=== PATIENT | female | born 1950 | race African-American/Black ===

== ENCOUNTER 2017-04-08 22:37 | Inpatient (IN) ==
[2017-04-08] MEDS ORDERED: ONDANSETRON 4 MG/2 ML VIAL IV STA (23:14)
[2017-04-08] MEDS ORDERED: HYDROmorphone 2 MG/1 ML VIAL IV STA (23:14)
[2017-04-08] MEDS ORDERED: ALUM/MAG/SIMETH/LIDO VISC 1:1 30 ML BOTTLE PO STA (23:14)
[2017-04-08] MEDS ORDERED: SODIUM CHLORIDE 0.9% 500 ML IV STA (23:14)
[2017-04-08] MEDS ORDERED: PANTOPRAZOLE 40 MG VIAL IV STA (23:14)
--- NOTE | 2017-04-08 23:15 | Emergency Department Note ---
Yolanda Deluca Gwan, am scribing for, and in the presence of, Brendan Arias MD 23 :14. Hugo Deluca Charles R, MD, personally performed the services described in this documentation, ascribed by Corey Guerrero in my presence, and it is both accurate and complete 315 . Arrival - Arrival Chief Complaint: Abdominal / Flank Pain Stated Complaint: Adomen pain ED Nursing Triage Note: patient stated that the abdomen pain started saturday night, but her head ache has been present since of last week. Patient stated that the abdomen pain has been chronic since 2013. Patient stated that she is also having some "SLIMEY" bowel movements. Mode of Arrival: Stretcher Limitations: No Limitations Source: Patient, Old Records Reviewed, RN Notes Reviewed Time Seen by Provider: 04/08/17 22:57 - History of Present Illness HPI Narrative: Patient is a 66 y/o female who presents to the ED with a c/o sore, swollen abd and N/V/D with an onset 2 days ago. Patient describes her abd pain as located "everywhere". She continued to note that this is the first time this has happened to her. During exam, patient did not display any signs of distress. No other problems/complaints reported in ED. Onset (ago): day(s) Consistency: constant Severity: moderate Allergies/Adverse Reactions: Allergies Allergy/AdvReac Type Severity Reaction Status Date / Time No Known Allergies Allergy Verified 06/27/16 08:18 Home Medications: Home Medications Medication Instructions Recorded Confirmed Type Lisinopril 20 mg PO DAILY 05/29/16 06/27/16 History Loratadine 10 mg PO BEDTIME PRN 05/29/16 06/27/16 History Metformin HCl 1,000 mg PO BID 05/29/16 06/27/16 History Sertraline [Zoloft] 100 mg PO DAILY 05/29/16 06/27/16 History Zolpidem [Ambien] 5 mg PO BEDTIME 05/29/16 06/27/16 History amLODIPine [Norvasc] 1 tablet PO BEDTIME 05/29/16 06/27/16 History traZODone [Desyrel] 50 mg PO BEDTIME 05/29/16 06/27/16 History Raloxifene [Evista] 60 mg PO BEDTIME 05/30/16 06/27/16 History Review of System - Review of System 12 point system: reviewed and no additional remarkable complaints except as stated - Review of System Constitutional: Absent: chills, fever Eyes: Absent: discharge, pain Gastrointestinal: Present: as per HPI, abdominal pain, nausea, vomiting, diarrhea Medical,Surgical,& Family Hx - Medical History Cardio: History of: Hypertension Neurology: No history of: Seizures HEENT: History of: Eye Problem (GLASSES), Dental Problems (TOP DENTURE) Respiratory: Comment Only: Obstructive Sleep Apnea (insomnia) Gastrointestinal: History of: GERD Comment Only: GI Problems (HX SWELLING STOMACH) Musculoskeletal: History of: Musculoskeletal Problems (ARTHRITIS) Reproductive: History of: Breast Cancer Other: History of: Cancer (BREAST NO IVS OR OR BP RIGHT ARM) - Surgical History Neurologic Surgeries: Patient denies: Neurologic Surgery Abdominal Surgeries: Surgical HX of: Colonoscopy Reproductive Surgeries: Surgical HX of;: Breast Surgery (R BREAST BX LUMPECTOMY RADIATION), Gynecologic Surgery, Tubal Ligation - Social History Smoking Status: Never smoker Exam Vital Signs: Vital Signs Temperature 98.4 F 04/08/17 22:39 Pulse Rate 83 04/08/17 22:39 Respiratory Rate 19 04/08/17 22:39 Blood Pressure 145/95 04/08/17 22:39 O2 Sat by Pulse Oximetry 97 04/08/17 22:39 - General General appearance: alert, in no apparent distress - Head Head exam: Present: atraumatic, normocephalic - Eye Eye exam: Present: normal appearance, PERRL, EOMI - ENT ENT exam: Present: normal oropharynx, mucous membranes moist, TM's normal bilaterally, normal external ear exam - Neck Neck exam: Present: full ROM, trachea midline. Absent: tenderness - Chest Chest inspection: Present: symmetric chest wall rise. Absent: tenderness - Respiratory Respiratory exam: Present: normal lung sounds bilaterally. Absent: respiratory distress - Cardiovascular Cardiovascular exam: Present: regular rate, normal rhythm, normal heart sounds. Absent: murmur - Abdominal Exam Abdominal exam: Present: distention, tenderness (abd tenderness), other ( decreased bowel sounds ) - Extremities Exam Extremities exam: Present: full ROM. Absent: tenderness - Back Exam Back exam: Present: full ROM. Absent: tenderness - Neurological Exam Neurological exam: Present: alert, oriented X3, CN II-XII intact. Absent: motor sensory deficit - Psychiatric Psychiatric exam: Present: normal affect, normal mood - Skin Skin exam: Present: warm, dry, intact, normal color Course - Consultations Consultation #1: Signed out to Dr. Moser ER doctor assuming care of this patient CT abdomen pelvis and labs are all pending Time: 01:40 Disposition Clinical Impression: Abdominal pain, Diabetes, HTN (hypertension) Case discussed with: patient, patient's family Condition: Stable
--- NOTE | 2017-04-08 23:18 | EKG Report ---
Stationary ECG Study [facility] ER Test Date: 04/08/2017 10:50:19 PM Pat Name: PAT WILLIAM Department: Room: Gender: F [employer]se[employer] Operator: SR : 1950 Requested by: Brendan Torres Order Number: [id number] Reading MD: EKATERINA ELMORE Intervals [place] Rate: 83 P: 60 WI: 153 QRS: -60 QRSD: 109 T: 63 QT: 366 QTc: 406 Interpretive Statements SINUS RHYTHM LEFT ANTERIOR FASCICULAR BLOCK Electronically Signed On 04-09-17 08:33:17 CDT by EKATERINA ELMORE [email or web address]
[2017-04-09] MEDS ORDERED: PANTOPRAZOLE 40 MG VIAL IV ONE ×2 (00:49→01:04)
[2017-04-09] MEDS ORDERED: HYDROmorphone 2 MG/1 ML VIAL ONE (00:50)
[2017-04-09] MEDS ORDERED: ALUM/MAG/SIMETH/LIDO VISC 1:1 30 ML BOTTLE PO ONE (00:50)
[2017-04-09] MEDS ORDERED: ONDANSETRON 4 MG/2 ML VIAL ONE (00:50)
[2017-04-09 01:38] LABS: Basophils # 0.1 10*3/uL (0.0-0.2); Basophils % 0.5 % (0.0-0.8); Eosinophils # 0.1 10*3/uL (0.0-0.87); Eosinophils % 0.5 % (0.00-10.9); Hematocrit 44.1 VOL% (35.7-47.0); Hemoglobin 15.4 GM/DL (12.0-16.0); Immature Granulocytes % 0.4 %; Immature Granulocytes Absolute 0.05 #; Lymphocytes # 2.7 10*3/uL (1.4-4.0); Lymphocytes % 20.5 % (21.3-54.2); Mean Corpuscular HGB Conc 34.9 GM/DL (32-36); Mean Corpuscular Hemoglobin 31 PG (27-34); Mean Corpuscular Volume 88.6 FL (87-102); Mean Platelet Volume 12.6 FL (9.6-12.0); Monocytes # 0.7 10*3/uL (0.11-0.8); Monocytes % 5.2 % (1.7-12.7); Neutrophils # 9.7 10*3/uL (1.4-7.4); Neutrophils % 72.9 % (38.7-73.9); Platelet Count 175 T/CUMM (130-400); Red Blood Count 4.98 MC/CUMM (3.8-5.5); Red Cell Distribution Width 12.8 % (9.3-17.3); White Blood Count 13.3 T/CUMM (4-12)
[2017-04-09 01:42] LABS: Albumin 3.7 G/DL (3.4-5.0); Bilirubin,Total 0.8 MG/DL (0.2-1.0); Calcium 9.5 MG/DL (8.5-10.1); Magnesium 1.5 MG/DL (1.8-2.4); Potassium 3.8 MMOL/L (3.5-5.1); Total Protein 7.4 G/DL (6.4-8.3); Troponin I Only 0.016 NG/ML (0.00-0.045)
[2017-04-09 02:10] LABS: Lactic Acid 2.9 MMOL/L (0.4-2.0)
[2017-04-09] MEDS ORDERED: SODIUM CHLORIDE 0.9% 2,000 ML IV STA (02:49)
[2017-04-09] MEDS ORDERED: CEFEPIME 2,000 MG in SODIUM CHLORIDE 0.9% 100 ML IV STA (03:10)
[2017-04-09] MEDS ORDERED: metroNIDAZOLE INJ 500 MG in PREMIX 1 EACH IV STA (03:11)
[2017-04-09] MEDS ORDERED: metroNIDAZOLE 500 MG/100 ML PREMIX IV ONE (03:33)
--- NOTE | 2017-04-09 04:47 | Hospitalist History & Physical ---
Assessment and Plan - Time spent with patient Time spent with patient: Less than 30 minutes (1) Enteritis Status: Acute Assessment and plan: NPO for now Stool cultures Flagyl and Levaquin Pain, nausea, antiflatulent medications PRN Fluid resuscitation Repeat lab work Current Visit: Yes (2) Abdominal pain Status: Acute Current Visit: Yes (3) Diabetes Status: Chronic Assessment and plan: Will continue home medication regimen once confirmed SSI Current Visit: No (4) HTN (hypertension) Status: Chronic Assessment and plan: Will start home medications once confirmed Current Visit: No History of Present Illness Chief complaint: abdominal pain History of present illness: Called to the ER for a Ms. Mustafa who is a 66 year old female who presents to the ED for diffuse abdominal pain that started Saturday. She states she felt bloated with increased dyspepsia and flatulence and began having n/v/d on Saturday. She admits to hot/cold spells and weakness. Her last normal BM was 1 week ago and did not have another BM until Saturday when the diarrhea started. CT scan of A/P showed enteritis, nonobstructing left kidney renal stone, and mild hepatic steatosis. She received Protonix, Flagyl, and Cefepime in the ED. Lactate 2.9. She will be admitted for fluid resuscitation, IV antibiotics, stool cultures, and repeat lab work. Home medications will be restarted once confirmed. Home Medications Medication Instructions Recorded Confirmed Type Lisinopril 20 mg PO DAILY 05/29/16 06/27/16 History Loratadine 10 mg PO BEDTIME PRN 05/29/16 06/27/16 History Metformin HCl 1,000 mg PO BID 05/29/16 06/27/16 History Sertraline [Zoloft] 100 mg PO DAILY 05/29/16 06/27/16 History Zolpidem [Ambien] 5 mg PO BEDTIME 05/29/16 06/27/16 History amLODIPine [Norvasc] 1 tablet PO BEDTIME 05/29/16 06/27/16 History traZODone [Desyrel] 50 mg PO BEDTIME 05/29/16 06/27/16 History Raloxifene [Evista] 60 mg PO BEDTIME 05/30/16 06/27/16 History Allergies Allergy/AdvReac Type Severity Reaction Status Date / Time No Known Allergies Allergy Verified 06/27/16 08:18 Medical,Surgical,& Family Hx - Medical History Cardio: History of: Hypertension No history of: Cerebrovascular Disease, CHF, [place] Psychological: No history of: Anxiety Disorders Neurology: History of: Migraine No history of: Seizures HEENT: History of: Eye Problem (GLASSES), Dental Problems (TOP DENTURE) Endocrine: History of: Diabetes Mellitus (NIDDM), Dyslipidemia Respiratory: No history of: Asthma Comment Only: Obstructive Sleep Apnea (insomnia) Renal: No history of: Renal Problems Genitourinary: No history of: Problems Gastrointestinal: History of: GERD Comment Only: GI Problems (HX SWELLING STOMACH) Musculoskeletal: History of: Musculoskeletal Problems (ARTHRITIS) Hematology: No history of: Anemia Reproductive: History of: Breast Cancer Other: History of: Cancer (BREAST NO IVS OR OR BP RIGHT ARM) - Surgical History Neurologic Surgeries: Patient denies: Neurologic Surgery HEENT Surgeries: Surgical HX of: Eye Surgery (cataracts) Abdominal Surgeries: Surgical HX of: Colonoscopy Reproductive Surgeries: Surgical HX of;: Breast Surgery (R BREAST BX LUMPECTOMY RADIATION), Gynecologic Surgery, Tubal Ligation - Family History Family History: Reports;: Family Cancer (father-pancreatic cancer; mother- stomach cancer) - Social History Smoking Status: Never smoker - Constitutional Constitutional: Present: anorexia, chills, fatigue, fever(s), weakness. Absent : headache(s), night sweats - EENT Eyes: Absent: blurry vision Ears: Absent: decreased hearing - Cardiovascular Cardiovascular: Absent: chest pain at rest, chest pain with activity, dyspnea, dyspnea on exertion, edema, lightheadedness, palpitations - Respiratory Respiratory: Absent: cough, dyspnea, hemoptysis - Gastrointestinal Gastrointestinal: Present: abdominal pain, bloating, constipation, diarrhea, loose stools, nausea, vomiting. Absent: dyspepsia, hematemesis, hematochezia, melena - Genitourinary Genitourinary: Absent: difficulty urinating - Hematologic/Lymphatic Hematologic/Lymphatic: Absent: easy bleeding Exam - Constitutional Vitals: Period Temp Pulse Resp BP Sys/Jeff Pulse Ox Last 24 Hr 98.4 F-98.4 F 83-83 19-19 145-145/95-95 97 General appearance: no acute distress - Head Head exam: Present: normal inspection, normocephalic - Eye Eye exam: Present: EOMI Pupils: Present: DURAN, normal accommodation - ENT ENT exam: Present: normal exam - Neck Neck exam: Present: normal inspection - Respiratory Respiratory exam: Present: clear to auscultation bilaterally. Absent: accessory muscle use (Respirations even and non-labored with symmetrical rise and fall of chest noted. ) - Cardiovascular Cardiovascular exam: Present: regular rate and rhythm - GI/Abdominal GI/Abdominal exam: Present: distended, hyperactive bowel sounds, tenderness - Extremities Exam Extremities exam: Present: normal inspection, normal capillary refill, full ROM - Back Exam Back exam: Present: normal inspection - Neurological Exam Neurological exam: Present: alert, oriented X3 (Answers all questions appropriately. Symmetrical rise and fall of chest noted. ) - Psychiatric Psychiatric exam: Present: normal affect - Skin Skin exam: Present: normal color, warm, dry, intact Results - Labs CBC & BMP: 04/08/17 01:01 04/08/17 01:01 Lab Results: I have reviewed the past 24 hour labs - Diagnostic Findings Procedure: CT Abdomen and Pelvis: report reviewed by me (Enteritis, non- obstructing left kidney stone, mild hepatic steatosis)
[2017-04-09] MEDS ORDERED: GLUCAGON 1 MG VIAL IM PRN (05:53)
[2017-04-09] MEDS ORDERED: DOCUSATE SODIUM 100 MG CAPSULE PO PRN (05:53)
[2017-04-09] MEDS ORDERED: SODIUM CHLORIDE 0.9% 1,000 ML IV ONE (05:53)
[2017-04-09] MEDS ORDERED: MORPHINE 2 MG/1 ML SYRINGE IV PRN (05:53)
[2017-04-09] MEDS ORDERED: DEXTROSE 50% 25 GM/50 ML SYRINGE IV PRN (05:53)
[2017-04-09] MEDS ORDERED: ACETAMINOPHEN 325 MG TABLET PO PRN (05:53)
[2017-04-09] MEDS ORDERED: SIMETHICONE CHEW 125 MG TABLET PO PRN (05:53)
[2017-04-09] MEDS: SODIUM CHLORIDE 0.9% 1,000 ML IV SCH ×2 (05:59→18:18)
[2017-04-09 06:33] LABS: Apearance,Urine Slightly Hazy (Clear); Bacteria,Urine Occasional /HPF (Few); Bilirubin,Urine Negative (Negative); Blood, Urine Negative (Negative); Glucose,Urine (UA) Negative (Negative); Ketones,Urine Negative (Negative); Mucus,Urine Occasional /LPF (Occasional); Nitrite,Urine Negative (Negative); Protein,Urine Negative; RBC,Urine 2 /HPF (0-4); Squamous Epithelial Cell,Urine Few /HPF (0-10); Urine Color Yellow (Yellow); Urine Specific Gravity > 1.060 (1.001-1.035); Urine Urobilinogen < 2.0 EU/DL (0.2-1.0); WBC,Urine 2 /HPF (0-6)
--- NOTE | 2017-04-09 08:02 | CT Report ---
Exam: CT abdomen and pelvis with intravenous contrast Exam date: 04/08/2017 11:15 PM Clinical History: 66-year-old,Female, generalized abdominal pain Technique: Axial computed tomography images of the abdomen and pelvis with intravenous contrast. All CT scans at this facility use one or more dose reduction techniques. Automated exposure control, MA/KV adjustment per patient size (including targeted exam Square dose is matched to indication) or iterative reconstruction technique Contrast: 100 mL of Omnipaque 350 administered intravenously Comparison: April 19, 2016 at 0739 hours Findings: Lower thorax: Bibasilar atelectasis Abdomen: Liver: Decreased hypodensity throughout the liver parenchyma. No focal parenchymal abnormalities Gallbladder and bile ducts: Gallbladder is normal. No calcified stones. No ductal dilatation. Pancreas: Pancreas is normal. Spleen: Spleen is normal. Adrenals: No adrenal mass. Kidneys and ureters: Punctate nonobstructing left calyceal stone. Kidneys are symmetric in size and attenuation. No hydronephrosis Stomach and bowel: Small bowel wall thickening within the mid to right lower quadrant with increased mucosal enhancement throughout the small bowel.. Appendix: Unremarkable. No primary or secondary signs to suggest appendicitis. Pelvis: Bladder: Unremarkable Reproductive: Unremarkable as visualized. Abdomen and pelvis: Intraperitoneal space: Small amount of free fluid tracking throughout the mesentery and into the pelvis Bones/joints: No acute osseous abnormality Soft tissues: No mass Vasculature: No aortic aneurysm Lymph nodes: No adenopathy Impression: 1. Findings to suggest acute enteritis, infectious and/or inflammatory. 2. Left nephrolithiasis 3. Hepatic steatosis PROCEDURE INTERPRETED AT [facility] DEPARTMENT OF RADIOLOGY Final Report Signed by: Juan De Jesus
--- NOTE | 2017-04-09 08:27 | XRay Report ---
XR abdomen 2V Indication: Abdominal pain Comparison: None available Findings: No free fluid or free air seen. The bowel gas pattern appears within normal limits. No abnormal calcifications are present. No other abnormality is identified. Impression: No evidence of abnormality demonstrated PROCEDURE INTERPRETED AT [facility] DEPARTMENT OF RADIOLOGY Final Report Signed by: Dr. Alex Patterson
--- NOTE | 2017-04-09 08:27 | XRay Report ---
XR chest 1V portable Indication: Abdominal pain Comparison: None available Findings: The heart and mediastinum are normal in size and configuration. The pulmonary vascularity is normal in caliber. No lung infiltrates, effusions, pneumothorax or other abnormality is demonstrated. Impression: Normal chest x-ray PROCEDURE INTERPRETED AT [facility] DEPARTMENT OF RADIOLOGY Final Report Signed by: Dr. Alex Patterson
[2017-04-09] MEDS: INSULIN REGULAR 100 UNIT/ML SUBCUT SCH ×3 (09:22→20:58)
[2017-04-09] MEDS: PANTOPRAZOLE 40 MG TABLET PO SCH (09:26)
[2017-04-09] MEDS: LEVOFLOXACIN INJ 750 MG in PREMIX 1 EACH IV SCH (09:27)
[2017-04-09] MEDS: ENOXAPARIN 40 MG/0.4 ML SYRINGE SUBCUT SCH (09:27)
--- NOTE | 2017-04-09 10:39 | Hospitalist Progress Note ---
Assessment and Plan (1) Diabetes Status: Chronic Assessment and plan: Patient is being treated with glargine insulin 30 units subcutaneous nightly and regular insulin sliding scale protocol. Her glucose this morning is 137. Current Visit: No Qualifiers: Diabetes mellitus type: type 1 Diabetes mellitus complication status: without complication Qualified Code(s): E10.9 - Type 1 diabetes mellitus without complications (2) HTN (hypertension) Status: Chronic Assessment and plan: Blood pressure today is 116/60 on no antihypertensive medications. Current Visit: No Qualifiers: Hypertension type: essential hypertension Qualified Code(s): I10 - Essential (primary) hypertension (3) Enteritis Status: Acute Assessment and plan: She continues to complain of nausea and abdominal cramping pain. I will continue bowel rest. Current Visit: Yes (4) Sepsis Status: Acute Assessment and plan: Her lactate was 2.9 on admission and 2.2 today. Today her blood pressure is 116 /60, HR 56/min, and temperature 97.8F. She continues on sodium chloride 0.9% infusion at 1 50 mL/h and intravenous levofloxacin, cefepime, and metronidazole. Current Visit: Yes Qualifiers: Sepsis type: sepsis due to unspecified organism Qualified Code(s): A41.9 - Sepsis, unspecified organism Hospitalist: Subjective Interval history: Patient was admitted during the night with gastroenteritis. She continues to be nauseated, but has not vomited since admission. She continues to complain of moderate abdominal cramping pain. She remains n.p.o. Exam - Constitutional Vitals: Period Temp Pulse Resp BP Sys/Jeff Pulse Ox Last 24 Hr 97.8 F-98.4 F 56-83 16-19 116-145/58-95 95-97 General appearance: no acute distress - Head Head exam: Present: normal inspection - Neck Neck exam: Present: normal inspection - Respiratory Respiratory exam: Present: clear to auscultation bilaterally - Cardiovascular Cardiovascular exam: Present: regular rate and rhythm - GI/Abdominal GI/Abdominal exam: Present: normal bowel sounds, soft, other (Nontender with no palpable masses or hepatosplenomegaly.) - Extremities Exam Extremities exam: Present: normal inspection - Skin Skin exam: Present: normal color, warm, intact Results - Labs CBC & BMP: 04/08/17 01:01 04/08/17 01:01
[2017-04-09] MEDS: metroNIDAZOLE INJ 500 MG in PREMIX 1 EACH IV SCH ×3 (11:00→21:32)
[2017-04-09] MEDS ORDERED: ZALEPLON 5 MG CAPSULE PO PRN (19:07)
[2017-04-09] MEDS: INSULIN GLARGINE 100 UNIT/ML SUBCUT SCH (20:57)
[2017-04-10] MEDS: SODIUM CHLORIDE 0.9% 1,000 ML IV SCH ×5 (01:18→20:19)
[2017-04-10] MEDS: metroNIDAZOLE INJ 500 MG in PREMIX 1 EACH IV SCH ×4 (05:23→20:18)
[2017-04-10 05:40] LABS: Albumin 3.1 G/DL (3.4-5.0); Magnesium 1.4 MG/DL (1.8-2.4); Potassium 3.6 MMOL/L (3.5-5.1); Total Protein 6.3 G/DL (6.4-8.3)
[2017-04-10 05:42] LABS: Basophils % 0.6 % (0.0-0.8); Eosinophils # 0.1 10*3/uL (0.0-0.87); Eosinophils % 2.1 % (0.00-10.9); Hematocrit 35.8 VOL% (35.7-47.0); Immature Granulocytes % 0.5 %; Immature Granulocytes Absolute 0.03 #; Lymphocytes % 32.8 % (21.3-54.2); Mean Corpuscular HGB Conc 34.6 GM/DL (32-36); Mean Corpuscular Hemoglobin 31 PG (27-34); Mean Corpuscular Volume 90.4 FL (87-102); Mean Platelet Volume 12.6 FL (9.6-12.0); Monocytes # 0.6 10*3/uL (0.11-0.8); Monocytes % 10.2 % (1.7-12.7); Neutrophils # 3.3 10*3/uL (1.4-7.4); Neutrophils % 53.8 % (38.7-73.9); Red Cell Distribution Width 12.6 % (9.3-17.3)
[2017-04-10 05:47] LABS: Hemoglobin 12.4 GM/DL (12.0-16.0); Platelet Count 121 T/CUMM (130-400); Red Blood Count 3.96 MC/CUMM (3.8-5.5); White Blood Count 6.2 T/CUMM (4-12)
[2017-04-10] MEDS: PANTOPRAZOLE 40 MG TABLET PO SCH (08:50)
[2017-04-10] MEDS: ENOXAPARIN 40 MG/0.4 ML SYRINGE SUBCUT SCH (08:50)
[2017-04-10] MEDS: INSULIN REGULAR 100 UNIT/ML SUBCUT SCH ×4 (10:29→20:27)
[2017-04-10] MEDS: LEVOFLOXACIN INJ 750 MG in PREMIX 1 EACH IV SCH (11:32)
--- NOTE | 2017-04-10 11:35 | Hospitalist Progress Note ---
Assessment and Plan (1) Diabetes Status: Inactive Assessment and plan: Patient is being treated with glargine insulin 30 units subcutaneous nightly and regular insulin sliding scale protocol. Her glucose this morning is 110. Current Visit: No Qualifiers: Diabetes mellitus type: type 1 Diabetes mellitus complication status: without complication Qualified Code(s): E10.9 - Type 1 diabetes mellitus without complications (2) HTN (hypertension) Status: Inactive Assessment and plan: Blood pressure today is 130/72 on no antihypertensive medications. Current Visit: No Qualifiers: Hypertension type: essential hypertension Qualified Code(s): I10 - Essential (primary) hypertension (3) Enteritis Status: Acute Assessment and plan: She she is mildly improved since yesterday. Her abdominal pain is decreased to mild to moderate. She is not experiencing nausea, vomiting, or diarrhea. I will begin her on a clear liquid diet. Current Visit: Yes (4) Sepsis Status: Acute Assessment and plan: She continues on intravenous levofloxacin and metronidazole. Current Visit: Yes Qualifiers: Sepsis type: sepsis due to unspecified organism Qualified Code(s): A41.9 - Sepsis, unspecified organism Hospitalist: Subjective Interval history: Patient reports that she feels mildly better today. She is experiencing mild to moderate abdominal cramping pain. She is not experiencing nausea, vomiting, or diarrhea. She thinks that she will be able to tolerate a clear liquid diet. Exam - Constitutional Vitals: Period Temp Pulse Resp BP Sys/Jeff Pulse Ox Last 24 Hr 96.5 F-98.4 F 59-66 18-20 114-143/57-72 93-100 General appearance: no acute distress - Head Head exam: Present: normal inspection - Neck Neck exam: Present: normal inspection - Respiratory Respiratory exam: Present: clear to auscultation bilaterally - Cardiovascular Cardiovascular exam: Present: regular rate and rhythm - GI/Abdominal GI/Abdominal exam: Present: normal bowel sounds, soft, other (Nontender with no palpable masses or hepatosplenomegaly.) - Extremities Exam Extremities exam: Present: normal inspection - Skin Skin exam: Present: normal color, warm, intact Results - Labs CBC & BMP: 04/10/17 04:55 04/10/17 04:55
[2017-04-10] MEDS: INSULIN GLARGINE 100 UNIT/ML SUBCUT SCH (20:28)
[2017-04-11] MEDS: SODIUM CHLORIDE 0.9% 1,000 ML IV SCH ×2 (03:00→06:27)
[2017-04-11] MEDS: metroNIDAZOLE INJ 500 MG in PREMIX 1 EACH IV SCH ×4 (03:28→20:40)
[2017-04-11 06:16] LABS: Basophils % 0.7 % (0.0-0.8); Eosinophils # 0.1 10*3/uL (0.0-0.87); Eosinophils % 1.8 % (0.00-10.9); Hematocrit 37.2 VOL% (35.7-47.0); Hemoglobin 12.7 GM/DL (12.0-16.0); Immature Granulocytes % 0.2 %; Immature Granulocytes Absolute 0.01 #; Lymphocytes # 1.7 10*3/uL (1.4-4.0); Lymphocytes % 30.1 % (21.3-54.2); Mean Corpuscular HGB Conc 34.1 GM/DL (32-36); Mean Corpuscular Hemoglobin 31 PG (27-34); Mean Corpuscular Volume 89.6 FL (87-102); Mean Platelet Volume 13.2 FL (9.6-12.0); Monocytes # 0.6 10*3/uL (0.11-0.8); Monocytes % 10.7 % (1.7-12.7); Neutrophils # 3.2 10*3/uL (1.4-7.4); Neutrophils % 56.5 % (38.7-73.9); Platelet Count 131 T/CUMM (130-400); Red Blood Count 4.15 MC/CUMM (3.8-5.5); Red Cell Distribution Width 12.5 % (9.3-17.3); White Blood Count 5.6 T/CUMM (4-12)
[2017-04-11 06:58] LABS: Calcium 8.5 MG/DL (8.5-10.1); Osmolality,Calculated 280.1 MOS/KG (273-304); Potassium 3.3 MMOL/L (3.5-5.1)
[2017-04-11] MEDS: PANTOPRAZOLE 40 MG TABLET PO SCH (08:10)
[2017-04-11] MEDS: ENOXAPARIN 40 MG/0.4 ML SYRINGE SUBCUT SCH (08:10)
[2017-04-11] MEDS: INSULIN REGULAR 100 UNIT/ML SUBCUT SCH ×4 (08:14→21:00)
--- NOTE | 2017-04-11 09:30 | Hospitalist Progress Note ---
Assessment and Plan (1) Diabetes Status: Inactive Assessment and plan: Patient is being treated with glargine insulin 30 units subcutaneous nightly and regular insulin sliding scale protocol. Her glucose this morning is 121. Current Visit: No Qualifiers: Diabetes mellitus type: type 1 Diabetes mellitus complication status: without complication Qualified Code(s): E10.9 - Type 1 diabetes mellitus without complications (2) HTN (hypertension) Status: Inactive Assessment and plan: Blood pressure today is 127/67 on no antihypertensive medications. Current Visit: No Qualifiers: Hypertension type: essential hypertension Qualified Code(s): I10 - Essential (primary) hypertension (3) Enteritis Status: Acute Assessment and plan: She she is mildly improved since yesterday. Her abdominal pain is decreased to mild to moderate. She is not experiencing nausea, vomiting, or diarrhea. I will advance her to a bland diet as tolerated. Current Visit: Yes (4) Sepsis Status: Acute Assessment and plan: She continues on intravenous levofloxacin and metronidazole. Her vital signs today are blood pressure 127/67, HR 60/min, and temperature 97.9F. Current Visit: Yes Qualifiers: Sepsis type: sepsis due to unspecified organism Qualified Code(s): A41.9 - Sepsis, unspecified organism Hospitalist: Subjective Interval history: She is mildly improved today. She continues to experience mild to moderate abdominal pain. She is not experiencing nausea and vomiting. Exam - Constitutional Vitals: Period Temp Pulse Resp BP Sys/Jeff Pulse Ox Last 24 Hr 96.9 F-98 F 58-68 16-20 123-152/61-92 93-99 General appearance: no acute distress - Head Head exam: Present: normal inspection - Neck Neck exam: Present: normal inspection - Respiratory Respiratory exam: Present: clear to auscultation bilaterally - Cardiovascular Cardiovascular exam: Present: regular rate and rhythm - GI/Abdominal GI/Abdominal exam: Present: normal bowel sounds, soft, other (Nontender with no palpable masses or hepatosplenomegaly.) - Extremities Exam Extremities exam: Present: normal inspection - Skin Skin exam: Present: normal color, warm, intact Results - Labs CBC & BMP: 04/11/17 04:28 04/11/17 04:28
[2017-04-11] MEDS: LEVOFLOXACIN INJ 750 MG in PREMIX 1 EACH IV SCH (10:39)
[2017-04-11] MEDS: SODIUM CHLOR 0.9% KCL 20 MEQ 20 MEQ/1,000 ML BAG IV SCH ×2 (10:40→18:40)
[2017-04-11] MEDS: INSULIN GLARGINE 100 UNIT/ML SUBCUT SCH (21:00)
[2017-04-12] MEDS: metroNIDAZOLE INJ 500 MG in PREMIX 1 EACH IV SCH ×4 (06:03→20:58)
[2017-04-12] MEDS: SODIUM CHLOR 0.9% KCL 20 MEQ 20 MEQ/1,000 ML BAG IV SCH ×2 (06:04→16:51)
[2017-04-12 07:01] LABS: Basophils % 0.7 % (0.0-0.8); Eosinophils # 0.1 10*3/uL (0.0-0.87); Eosinophils % 1.7 % (0.00-10.9); Hemoglobin 13.2 GM/DL (12.0-16.0); Immature Granulocytes % 0.3 %; Immature Granulocytes Absolute 0.02 #; Lymphocytes # 1.8 10*3/uL (1.4-4.0); Lymphocytes % 30.6 % (21.3-54.2); Mean Corpuscular HGB Conc 34.7 GM/DL (32-36); Mean Corpuscular Hemoglobin 31 PG (27-34); Mean Platelet Volume 12.1 FL (9.6-12.0); Monocytes # 0.6 10*3/uL (0.11-0.8); Monocytes % 9.4 % (1.7-12.7); Neutrophils # 3.4 10*3/uL (1.4-7.4); Neutrophils % 57.3 % (38.7-73.9); Platelet Count 136 T/CUMM (130-400); Red Blood Count 4.27 MC/CUMM (3.8-5.5); Red Cell Distribution Width 12.5 % (9.3-17.3)
[2017-04-12 07:36] LABS: Calcium 8.7 MG/DL (8.5-10.1); Potassium 3.6 MMOL/L (3.5-5.1)
[2017-04-12] MEDS: INSULIN REGULAR 100 UNIT/ML SUBCUT SCH ×3 (09:49→17:35)
[2017-04-12] MEDS ORDERED: LORATADINE 10 MG TABLET PO PRN (10:04)
[2017-04-12] MEDS: ENOXAPARIN 40 MG/0.4 ML SYRINGE SUBCUT SCH (10:25)
[2017-04-12] MEDS: PANTOPRAZOLE 40 MG TABLET PO SCH (10:25)
[2017-04-12] MEDS: ONDANSETRON 4 MG/2 ML VIAL IV PRN ×2 (10:26→18:31)
--- NOTE | 2017-04-12 10:35 | Hospitalist Progress Note ---
Assessment and Plan (1) Diabetes Status: Inactive Assessment and plan: Patient is being treated with glargine insulin 30 units subcutaneous nightly and regular insulin sliding scale protocol. Her glucose this morning is 119. Current Visit: No Qualifiers: Diabetes mellitus type: type 1 Diabetes mellitus complication status: without complication Qualified Code(s): E10.9 - Type 1 diabetes mellitus without complications (2) HTN (hypertension) Status: Inactive Assessment and plan: Blood pressure today is 142/81 on no antihypertensive medications. Current Visit: No Qualifiers: Hypertension type: essential hypertension Qualified Code(s): I10 - Essential (primary) hypertension (3) Enteritis Status: Acute Assessment and plan: She she is mildly improved since yesterday. Her abdominal pain is decreased to mild. She is experiencing mild nausea. Current Visit: Yes (4) Sepsis Status: Acute Assessment and plan: She continues on intravenous levofloxacin and metronidazole. Current Visit: Yes Qualifiers: Sepsis type: sepsis due to unspecified organism Qualified Code(s): A41.9 - Sepsis, unspecified organism Hospitalist: Subjective Interval history: She is slowly improving. She is tolerating a clear liquid diet. She does not wish to progress her diet at this time. She states that she is having mild abdominal pain and mild nausea with no vomiting. Exam - Constitutional Vitals: Period Temp Pulse Resp BP Sys/Jeff Pulse Ox Last 24 Hr 93.3 F-98.6 F 59-71 16-20 117-159/64-88 91-96 General appearance: no acute distress - Head Head exam: Present: normal inspection - Neck Neck exam: Present: normal inspection - Respiratory Respiratory exam: Present: clear to auscultation bilaterally - Cardiovascular Cardiovascular exam: Present: regular rate and rhythm - GI/Abdominal GI/Abdominal exam: Present: normal bowel sounds, soft, other (Nontender with no palpable masses or hepatosplenomegaly.) - Extremities Exam Extremities exam: Present: normal inspection - Skin Skin exam: Present: normal color, warm, intact Results - Labs CBC & BMP: 04/12/17 06:42 04/12/17 06:42
[2017-04-12] MEDS: LEVOFLOXACIN INJ 750 MG in PREMIX 1 EACH IV SCH (11:49)
[2017-04-12] MEDS: SERTRALINE 100 MG TABLET PO SCH (16:53)
[2017-04-12] MEDS: traZODone 50 MG TABLET PO SCH (20:58)
[2017-04-12] MEDS: LISINOPRIL 20 MG TABLET PO SCH (20:58)
[2017-04-12] MEDS: ZALEPLON 5 MG CAPSULE PO SCH (20:58)
[2017-04-12] MEDS: metFORMIN 500 MG TABLET PO SCH (20:58)
[2017-04-12] MEDS: RALOXIFENE 60 MG TABLET PO SCH (20:58)
[2017-04-12] MEDS: INSULIN GLARGINE 100 UNIT/ML SUBCUT SCH (21:05)
[2017-04-13] MEDS: INSULIN REGULAR 100 UNIT/ML SUBCUT SCH ×5 (00:41→21:00)
[2017-04-13] MEDS: SODIUM CHLOR 0.9% KCL 20 MEQ 20 MEQ/1,000 ML BAG IV SCH ×3 (01:37→22:47)
[2017-04-13] MEDS: metroNIDAZOLE INJ 500 MG in PREMIX 1 EACH IV SCH ×4 (02:56→20:36)
[2017-04-13] MEDS ORDERED: SERTRALINE 100 MG TABLET PO SCH (09:00)
[2017-04-13] MEDS: ENOXAPARIN 40 MG/0.4 ML SYRINGE SUBCUT SCH (10:04)
[2017-04-13] MEDS: SERTRALINE 100 MG TABLET PO SCH (10:05)
[2017-04-13] MEDS: amLODIPine 10 MG TABLET PO SCH (10:05)
[2017-04-13] MEDS: PANTOPRAZOLE 40 MG TABLET PO SCH (10:05)
[2017-04-13] MEDS: PIOGLITAZONE 15 MG TABLET PO SCH (10:05)
[2017-04-13] MEDS: metFORMIN 500 MG TABLET PO SCH ×2 (10:05→20:36)
--- NOTE | 2017-04-13 10:24 | Hospitalist Progress Note ---
Assessment and Plan (1) Diabetes Status: Inactive Assessment and plan: Patient is being treated with glargine insulin 30 units subcutaneous nightly and regular insulin sliding scale protocol. Her glucose this morning is 103. Current Visit: No Qualifiers: Diabetes mellitus type: type 1 Diabetes mellitus complication status: without complication Qualified Code(s): E10.9 - Type 1 diabetes mellitus without complications (2) HTN (hypertension) Status: Inactive Assessment and plan: Blood pressure today is 145/85 on no antihypertensive medications. Current Visit: No Qualifiers: Hypertension type: essential hypertension Qualified Code(s): I10 - Essential (primary) hypertension (3) Enteritis Status: Acute Assessment and plan: She she is mildly improved since yesterday. Her abdominal pain is decreased to mild. Current Visit: Yes (4) Sepsis Status: Acute Assessment and plan: She continues on intravenous levofloxacin and metronidazole. Current Visit: Yes Qualifiers: Sepsis type: sepsis due to unspecified organism Qualified Code(s): A41.9 - Sepsis, unspecified organism Hospitalist: Subjective Interval history: She is feeling somewhat better today. She is eating soft food and liquids. She is experiencing mild abdominal discomfort. She is not experiencing nausea or vomiting. Exam - Constitutional Vitals: Period Temp Pulse Resp BP Sys/Jeff Pulse Ox Last 24 Hr 97.0 F-97.7 F 56-74 18-20 137-159/74-88 93-97 General appearance: no acute distress - Head Head exam: Present: normal inspection - Neck Neck exam: Present: normal inspection - Respiratory Respiratory exam: Present: clear to auscultation bilaterally - Cardiovascular Cardiovascular exam: Present: regular rate and rhythm - GI/Abdominal GI/Abdominal exam: Present: normal bowel sounds, soft, other (Nontender with no palpable masses or hepatosplenomegaly.) - Extremities Exam Extremities exam: Present: normal inspection - Skin Skin exam: Present: normal color, warm, intact Results - Labs CBC & BMP: 04/12/17 06:42 04/12/17 06:42
[2017-04-13] MEDS: LEVOFLOXACIN INJ 750 MG in PREMIX 1 EACH IV SCH (11:21)
[2017-04-13] MEDS: ONDANSETRON 4 MG/2 ML VIAL IV PRN (13:45)
[2017-04-13] MEDS: LISINOPRIL 20 MG TABLET PO SCH (20:36)
[2017-04-13] MEDS: ZALEPLON 5 MG CAPSULE PO SCH (20:36)
[2017-04-13] MEDS: RALOXIFENE 60 MG TABLET PO SCH (20:36)
[2017-04-13] MEDS: traZODone 50 MG TABLET PO SCH (20:36)
[2017-04-13] MEDS: INSULIN GLARGINE 100 UNIT/ML SUBCUT SCH (21:00)
[2017-04-14] MEDS: metroNIDAZOLE INJ 500 MG in PREMIX 1 EACH IV SCH ×3 (02:39→15:23)
[2017-04-14 04:16] LABS: Basophils % 0.3 % (0.0-0.8); Eosinophils # 0.2 10*3/uL (0.0-0.87); Eosinophils % 2.4 % (0.00-10.9); Hematocrit 36.2 VOL% (35.7-47.0); Hemoglobin 12.5 GM/DL (12.0-16.0); Immature Granulocytes % 0.2 %; Immature Granulocytes Absolute 0.01 #; Lymphocytes # 1.9 10*3/uL (1.4-4.0); Lymphocytes % 30.1 % (21.3-54.2); Mean Corpuscular HGB Conc 34.5 GM/DL (32-36); Mean Corpuscular Hemoglobin 31 PG (27-34); Mean Corpuscular Volume 89.6 FL (87-102); Mean Platelet Volume 12.3 FL (9.6-12.0); Monocytes # 0.6 10*3/uL (0.11-0.8); Monocytes % 8.6 % (1.7-12.7); Neutrophils # 3.7 10*3/uL (1.4-7.4); Neutrophils % 58.4 % (38.7-73.9); Platelet Count 132 T/CUMM (130-400); Red Blood Count 4.04 MC/CUMM (3.8-5.5); Red Cell Distribution Width 12.5 % (9.3-17.3); White Blood Count 6.4 T/CUMM (4-12)
[2017-04-14 04:44] LABS: Calcium 8.9 MG/DL (8.5-10.1); Potassium 3.8 MMOL/L (3.5-5.1)
[2017-04-14] MEDS: SODIUM CHLOR 0.9% KCL 20 MEQ 20 MEQ/1,000 ML BAG IV SCH ×2 (08:10→15:23)
[2017-04-14] MEDS: INSULIN REGULAR 100 UNIT/ML SUBCUT SCH ×2 (08:10→12:10)
[2017-04-14] MEDS: ENOXAPARIN 40 MG/0.4 ML SYRINGE SUBCUT SCH (10:24)
[2017-04-14] MEDS: metFORMIN 500 MG TABLET PO SCH (10:25)
[2017-04-14] MEDS: amLODIPine 10 MG TABLET PO SCH (10:25)
[2017-04-14] MEDS: SERTRALINE 100 MG TABLET PO SCH (10:25)
[2017-04-14] MEDS: PIOGLITAZONE 15 MG TABLET PO SCH (10:26)
--- NOTE | 2017-04-14 10:58 | Discharge Summary ---
Hospital Course - Hospital Course Hospital Course: Ms. Mustafa was admitted to the hospital via the emergency department with a several day history of complaints of abdominal pain nausea and vomiting. Evaluation in the emergency department including a CT scan of the abdomen and pelvis demonstrated findings compatible with enteritis, mild hepatic steatosis, and a nonobstructing left renal calculus. She was administered 1 dose of intravenous cefepime and metronidazole in the emergency room and subsequently begun on intravenous levofloxacin 75 mg daily. She slowly improved over the next several days. At the time of her discharge she was comfortable with no abdominal pain, nausea, or vomiting and tolerating a full liquid diet without difficulties. Diagnosis - Discharge Diagnosis (1) Diabetes Status: Chronic (2) HTN (hypertension) Status: Chronic (3) Enteritis Status: Acute (4) Sepsis Status: Acute Discharge Plan - Discharge Data Disposition: Disch To Home/Self Care Condition at Discharge: Stable Discharge Diet: advance to your usual diet Activity: resume usual activities as tolerated - Discharge Medications New Insulin Glargine [Lantus] 30 unit SUBCUT BEDTIME #1 unit amLODIPine [Norvasc] 10 mg PO DAILY #30 tablet Continue Metformin HCl 500 mg PO BID Lisinopril 20 mg PO BEDTIME amLODIPine [Norvasc] 1 tablet PO DAILY traZODone [Desyrel] 50 mg PO BEDTIME Zolpidem [Ambien] 5 mg PO BEDTIME Sertraline [Zoloft] 100 mg PO DAILY Loratadine 10 mg PO BEDTIME PRN PRN Reason: ALLERGIES Raloxifene [Evista] 60 mg PO BEDTIME Pioglitazone HCl 1 tablet PO DAILY - Follow Up or Referral - Forms/Instructions Exam - Constitutional Vitals: Period Temp Pulse Resp BP Sys/Jeff Pulse Ox Last 24 Hr 97.4 F-98.7 F 59-70 18-20 137-161/74-78 90-98 Discharge Results Labs on day of discharge: Labs from last 24 hours 04/14/17 04/14/17 04/14/17 07:48 03:55 03:55 WBC 6.4 RBC 4.04 Hgb 12.5 Hct 36.2 MCV 89.6 MCH 31 MCHC 34.5 RDW 12.5 Plt Count 132 MPV 12.3 H Neut % (Auto) 58.4 Lymph % (Auto) 30.1 [place] % (Auto) 8.6 Eos % (Auto) 2.4 Baso % (Auto) 0.3 Neut # (Auto) 3.7 Lymph # (Auto) 1.9 [place] # (Auto) 0.6 Eos # (Auto) 0.2 Baso # (Auto) 0.0 Immature Gran % 0.2 Nucleated RBC % 0.0 Immature Gran # 0.01 Nucleated RBCs # 0.00 Immature Plt Fraction 0.0 Sodium 143 Potassium 3.8 Chloride 108 H Carbon Dioxide 28 Anion Gap 10.8 BUN 5 L Creatinine 0.80 GFR Calculation 109 BUN/Creatinine Ratio 6.00 Glucose 132 H POC Glucose 126 H Calculated Osmolality 283.0 Calcium 8.9 04/13/17 04/13/17 16:30 13:35 WBC RBC Hgb Hct MCV MCH MCHC RDW Plt Count MPV Neut % (Auto) Lymph % (Auto) [place] % (Auto) Eos % (Auto) Baso % (Auto) Neut # (Auto) Lymph # (Auto) [place] # (Auto) Eos # (Auto) Baso # (Auto) Immature Gran % Nucleated RBC % Immature Gran # Nucleated RBCs # Immature Plt Fraction Sodium Potassium Chloride Carbon Dioxide Anion Gap BUN Creatinine GFR Calculation BUN/Creatinine Ratio Glucose POC Glucose 166 H 142 H Calculated Osmolality Calcium DS: Provider Date of admission: 04/09/17 04:21 Primary care physician: EVER Nathan Attending physician on admission: Derek Lim MD Discharging clinician: Ranjith Dale
[2017-04-14] MEDS: PANTOPRAZOLE 40 MG TABLET PO SCH (11:06)
[2017-04-14] MEDS: LEVOFLOXACIN INJ 750 MG in PREMIX 1 EACH IV SCH (12:10)
[2017-04-14 12:13] VITALS: BP 142/80
== END 2017-04-14 15:30 | disposition home or self-care (01) | DRG 872 ==
LOC: EDBD → EDUNIT# → N.ED 22:37 → SUATTDRO 04-09 04:21 → N.EDINP 04-09 04:21 → N.2E 04-09 05:45
PROVIDERS: ADMIT Internal Medicine